=== PATIENT | male | born 1955 | race Caucasian/White ===

== ENCOUNTER → 2016-12-06 | Outpatient (CLI) | payer BC ==
[~2016-12-06] MED LIST: AMLODIPINE-BEN1 EAC3 PO; HYDROCODON-ACE1 EAC4 PO; NABUMETONE750 MG PO; PROTONIX40 MG PO
--- NOTE | ~2016-12-06 | ENPV ---
Vascular Lower Arterial Plethysmography Procedure Demographics Patient Name GAVIN RIVAS Date of Study 12/06/2016 Patient Number [id number] Gender Male Date of 1955 Age 61 Visit Number [id number] Height Accession Number [id number] Weight Room Number BSA BMI Referring Melara Andres Faust MD Physician Guzman Riley MD Physician Ordering Physician Guzman Jang MD Apartment Le[employer] Specialist Delivery Aide Erica [facility] Conclusions Summary Normal triphasic Doppler flow signals are noted at the ankle level bilaterally. Ankle brachial index on the right is 1.18 no significant arterial disease at rest. Ankle brachial index on the left is 1.19 no significant arterial disease at rest. This exam suggests no evidence of hemodynamically significant flow restriction involving either lower extremity. Procedure Type of Study: Extremities Arteries:Lower Arterial Plethysmography, Ankle/Brachial Indicies, DOMINIQUE w/ pre/post Excercise Fabio. Indications for Study:Lower back pain. Appropriate Use Criteria:7 Blood Pressure:Right arm 151/154 mmHg. Patient Status:Routine. Study Location:Vascular Lab. Velocities are measured in cm/s ; Diameters are measured in cm Pressures + +----+ +---------+--------+ + + ! ! !Right ! !Left ! ! ! + +----+ +---------+--------+ + + !Location ! !Pressure !Ratio ! !Pressure !Ratio ! + +----+ +---------+--------+ + + !Ankle PT ! !179 !1.16 ! !183 !1.19 ! + +----+ +---------+--------+ + + !DP ! !182 !1.18 ! !173 !1.12 ! + +----+ +---------+--------+ + + - Brachial Pressure:Right: 151.Left:154. - DOMINIQUE:Right: 1.18.Left: 1.19. Post Exercise + +----+ +---------+--------+ + + ! ! !Right ! !Left ! ! ! + +----+ +---------+--------+ + + !Location ! !Pressure !Ratio ! !Pressure !Ratio ! + +----+ +---------+--------+ + + !RN ANESTHETIST ! ! ! ! !204 !1.27 ! + +----+ +---------+--------+ + + !DP ! !194 !1.2 ! ! ! ! + +----+ +---------+--------+ + + - Brachial Pressure:Left:161. - DOMINIQUE:Right: 1.2.Left: 1.27. Signature dtt: MALACHI BOWER dtlacey: 12/06/16 1335 Physician Self Edit
== END | disposition disaster alternative care site (69) ==
LOC: GCAR 13:00
DX: M54.12 Radiculopathy, cervical region (principal); R29.2 Abnormal reflex; R29.898 Other symptoms and signs involving the musculoskeletal system

== ENCOUNTER → 2016-12-16 | Outpatient (CLI) | payer BC | END | disposition disaster alternative care site (69) | LOC: GOPD 12-01 08:00 → GPOC 12-01 10:00 → GOPD 12-13 | PROC: 3E0R33Z Introduction of Anti-inflammatory into Spinal Canal, Percutaneous Approach (ICD-10-PCS; principal; 2016-12-16) | PROC: 3E0R3BZ Introduction of Anesthetic Agent into Spinal Canal, Percutaneous Approach (ICD-10-PCS; 2016-12-16) | DX: M54.12 Radiculopathy, cervical region (principal); M99.81 Other biomechanical lesions of cervical region; R29.898 Other symptoms and signs involving the musculoskeletal system | CPT/HCPCS: J1040 ==